=== PATIENT | female | born 1945 | race Caucasian/White ===

== ENCOUNTER 2019-04-04 12:07 | Outpatient (CLI) | payer BC | END 2019-04-04 12:08 | disposition home or self-care (01) | LOC: C.MAMMO 12:07 ==

== ENCOUNTER 2019-04-04 12:30 | Outpatient (CLI) | payer BC | END 2019-04-04 12:31 | disposition home or self-care (01) | LOC: C.DEXAIC 12:31 | DX: M81.0 Age-related osteoporosis without current pathological fracture (principal) ==